=== PATIENT | male | born 1980 | race Caucasian/White ===

== ENCOUNTER 2022-04-22 13:40 | Emergency (ER) | payer OTHER ==
[~2022-04-22] VITALS: Ht 182.9 cm; Wt 90.7 kg
[2022-04-22 13:43] VITALS: BP_SYST 134
[2022-04-22] MEDS ORDERED: LIDOCAINE/EPI 1% 1:100000 20 ML VIAL INJ ONE ×2 (14:25→14:30)
[2022-04-22] MEDS ORDERED: BACITRACIN 1 GM OINT TP ONE (14:30)
[2022-04-22] MEDS ORDERED: CEPH250C PO (14:51)
[2022-04-22] MEDS ORDERED: IBUP-1969 PO (14:53)
[2022-04-22] MEDS ORDERED: NEOM28.36 TP (14:53)
[2022-04-22 15:23] VITALS: BP_SYST 134
== END 2022-04-22 15:23 | disposition home or self-care (01) ==
LOC: SED 13:40
DX: S51.812A Laceration without foreign body of left forearm, initial encounter (principal); Z79.899 Other long term (current) drug therapy; W27.8XXA Contact with other nonpowered hand tool, initial encounter; Y93.89 Activity, other specified; Y92.89 Other specified places as the place of occurrence of the external cause; Y99.8 Other external cause status
CPT/HCPCS: 99282; 99283